=== PATIENT | female | born 1970 | race Caucasian/White ===

== ENCOUNTER → 2017-04-06 | Outpatient (CLI) | payer OTHER ==
[~2017-04-06] MED LIST: BUPRTAB51 PO; CIPR-255 PO
[2017-04-06 09:32] LABS: HEMATOCRIT 40.8 % (37-47); MEAN CELL VOLUME 89.7 fL (80-100); MEAN CORPUSCULAR HGB CONC 32.4 g/dl (32-36); PLATELET COUNT 252 K/uL (130-400); RED BLOOD COUNT 4.55 M/uL (4.2-5.4); WHITE BLOOD COUNT 5.07 K/uL (4.8-10.8)
[2017-04-06 10:03] LABS: ALT/SGPT 34 U/L (12-78); AST/SGOT 16 U/L (15-37); BLOOD UREA NITROGEN 9 mg/dl (7-18); BUN/CREATININE RATIO 10.9 (10-20); CARBON DIOXIDE 26 mmol/L (21-32); CHLORIDE 108 mmol/L (98-107); CREATININE 0.79 mg/dl (0.60-1.20); GLUCOSE 84 mg/dl (70-99); SODIUM 141 mmol/L (136-145)
[2017-04-06 10:15] LABS: ALKALINE PHOSPHATASE 104 U/L (45-117); CHOLESTEROL 185 mg/dl (0-200); CHOLESTEROL/HDL RATIO 4.3; HDL CHOLESTEROL 43 mg/dl; LDL CHOLESTEROL CALCULATED 118 mg/dl; TRIGLYCERIDES 121 mg/dl (0-150); VERY LOW DENSITY LIPOPROT CALC 24 mg/dl
== END | disposition home or self-care (01) ==
LOC: C.LAB 08:21
PROVIDERS: ATTEND Physician Assistant
DX: E78.5 Hyperlipidemia, unspecified (principal); R23.8 Other skin changes

== ENCOUNTER → 2017-07-04 | Outpatient (CLI) | payer OTHER ==
[2017-07-04 10:26] LABS: TESTOSTERONE,TOTAL 27.5 ng/dl
[2017-07-05 15:21] LABS: MICROSOMAL AB 1 IU/ML (<9)
== END ==
LOC: C.LAB 08:30
PROVIDERS: ATTEND Family Medicine
DX: R53.83 Other fatigue (principal); N95.9 Unspecified menopausal and perimenopausal disorder; E34.9 Endocrine disorder, unspecified

== ENCOUNTER → 2017-08-31 | Outpatient (CLI) | payer OTHER ==
[2017-08-31 10:28] LABS: TESTOSTERONE,TOTAL 144.6 ng/dl
== END | disposition home or self-care (01) ==
LOC: C.LAB 08:08
PROVIDERS: ATTEND Family Medicine
DX: N95.9 Unspecified menopausal and perimenopausal disorder (principal); Z79.890 Hormone replacement therapy

== ENCOUNTER → 2017-09-19 | Outpatient (CLI) | payer OTHER ==
[~2017-09-19] MED LIST changes: +CYCL10TA6 PO; +IBUP-1427 PO; +LACT1CAP6 PO; +META1TAB22 PO; +OXYC-90 PO; +SIMV10TA2 PO
--- NOTE | 2017-10-03 14:56 | MAMMOGRAPHY REPORT ---
BILATERAL DIGITAL SCREENING MAMMOGRAM TOMOSYNTHESIS WITH CAD: 09/19/2017 CLINICAL HISTORY: Routine screening. TECHNIQUE: Bilateral breast tomosynthesis in addition to standard 2D mammography was performed. Juan nt study was also evaluated with a Computer Aided Detection (CAD) system. COMPARISON: Comparison is made to exams dated: 04/25/2012 aspiration, 04/25/2012 ultrasound, 04/25/2012 mammogram, 04/19/2011 mammogram - [facility], and 12/21/2015 mammogram - [facility] René Kinsey. BREAST COMPOSITION: The tissue of both breasts is heterogeneously dense, which may obscure small mas ses. FINDINGS: There are multiple bilateral partially circumscribed masses in the breasts, most likely rep resenting cysts, particularly given a prior left breast ultrasound performed in 2011 in which several anechoic cysts were documented at that time. No suspicious spiculated or irregular mass, architectu ral distortion or cluster of microcalcifications is seen. IMPRESSION: ACR BI-RADS CATEGORY 0: INCOMPLETE EVALUATION: NEED ADDITIONAL IMAGING EVALUATION 1. No mammographic evidence of malignancy. 2. However, the patient reports she is feeling a lump in the left breast, which may have been aspira august in the past. Nevertheless, definitive characterization with targeted ultrasound of this lump is recommended. The patient will be called to schedule an appointment. Approximately 10% of breast cancers are not detected with mammography. A negative mammographic report should not delay biopsy if a clinically suggestive mass is present. Linda Jarrett M.D. ay/:10/02/2017 15:05:47 [employer] Print[employer] Back Tender: Luis A MCCAULEY(Daren)(Colleen), [facility] letter sent: Addl Imaging 0 BI-RADS Code: ACR BI-RADS Category 0: Incomplete Evaluation: Need Additional Imaging Evaluation
== END | disposition home or self-care (01) ==
LOC: C.MAMM 14:17
PROVIDERS: ATTEND Physician Assistant
DX: Z12.31 Encounter for screening mammogram for malignant neoplasm of breast (principal)

== ENCOUNTER → 2017-10-08 | Outpatient (CLI) | payer OTHER ==
[~2017-10-08] MED LIST changes: -CYCL10TA6 PO; -IBUP-1427 PO; -LACT1CAP6 PO; -META1TAB22 PO; -OXYC-90 PO; -SIMV10TA2 PO
--- NOTE | 2017-10-08 15:09 | MAMMOGRAPHY REPORT ---
ULTRASOUND OF LEFT BREAST: 10/08/2017 CLINICAL HISTORY: 47-year-old woman reports a palpable lump in the 6:00 left breast that she reports was drained approximately 5 years ago. She also reports her breasts have always contained multiple c ysts bilaterally. COMPARISON: Comparison is made to exams dated: 04/19/2011 mammogram, 04/25/2012 mammogram, 04/25/2012 u ltrasound, 04/25/2012 aspiration - [facility], 12/21/2015 mammogram - [facility] Jesús laneCarmel Kinsey, and 09/19/2017 mammogram - [facility]. FINDINGS: Targeted ultrasound was performed in the 5:00 left breast, in the area of new palpable lum p pointed out by the patient. In the 5:00 axis, 3 cm from the nipple, there is a circumscribed, lobu lated anechoic benign simple cyst, with evidence of posterior acoustic enhancement, measuring 2.5 x 1 .6 x 2.2 cm. Another smaller abutting cyst measures 4.9 x 7.6 mm. Numerous other anechoic benign si mple cysts are scattered throughout the remainder of the lateral left breast on ultrasound, most nota fady larger anechoic cyst in the 2:00 left breast, 7 cm from the nipple, measuring 2.4 and 1.3 cm. A 2.5 cm anechoic cyst in the 12:00 left breast, another anechoic cyst in the 2:00 left breast, 1 cm fr om the nipple measuring 1.9 cm and a 2.9 cm cyst in the 3:00 left breast. No suspicious solid mass i s identified on targeted ultrasound. IMPRESSION: ACR BI-RADS CATEGORY 2: BENIGN The new palpable lump in the 5:00 left breast correlates with an anechoic benign simple cyst on ultra sound, measuring 2.5 cm. Several other anechoic benign simple cysts are scattered throughout the lat eral left breast on ultrasound, compatible with benign fibrocystic change. There is no targeted sono graphic evidence of malignancy in the left breast. Recommend continued clinical monitoring and also return to annual screening mammography schedule. Any new palpable lump should trigger a diagnostic u ltrasound. These results and recommendations were discussed with the patient at the time of the exam. Linda Jarrett M.D. ay/:10/08/2017 10:33:51 Freight Shipping Agent: Dr. Linda Jarrett, [facility] letter sent: Normal 10/02 BI-RADS Code: ACR BI-RADS Category 2: Benign
== END | disposition home or self-care (01) ==
LOC: C.MAMM 08:39
PROVIDERS: ATTEND Physician Assistant
DX: N63.23 Unspecified lump in the left breast, lower outer quadrant (principal); N60.02 Solitary cyst of left breast

== ENCOUNTER 2017-12-02 10:50 | Emergency (ER) | payer OTHER ==
[~2017-12-02] VITALS: Ht 172.7 cm; Wt 86.1 kg
[2017-12-02 10:52] VITALS: TEMP 36.3; Ht 172.7 cm; Wt 86.1 kg
[2017-12-02] MEDS ORDERED: SIMV10TA2 PO (11:04)
[2017-12-02] MEDS ORDERED: IBUP-1427 PO (11:04)
[2017-12-02] MEDS ORDERED: LACT1CAP6 PO (11:04)
[2017-12-02] MEDS ORDERED: MoRPHine SULFATE 10 MG/ML CARP/VIAL IM STA (11:13)
[2017-12-02] MEDS ORDERED: KETOROLAC TROMETHAMINE 60 MG/2 ML VIAL IM STA (11:13)
[2017-12-02] MEDS ORDERED: ONDANSETRON 4MG OD TAB PO STA (11:13)
[2017-12-02] MEDS ORDERED: DIAZEPAM INJ 5 MG/ML 2 ML CARP IM STA (12:05)
[2017-12-02] MEDS ORDERED: OXYC1TAB3 PO (13:08)
[2017-12-02] MEDS ORDERED: META1TAB22 PO (13:08)
[2017-12-02] MEDS ORDERED: CYCL10TA6 PO (13:08)
[2017-12-02 13:31] VITALS: BP 126/65; PULSE 63; O2SAT 100
--- NOTE | 2017-12-02 13:32 | EMERGENCY ROOM VISIT NOTE ---
History First contact with patient: 11:00 Chief Complaint: BACK PAIN Stated Complaint: R UPPER BACK SPASM History of Present Illness The patient is a 47 year old female who presents to the Emergency Room with complaints of right middle back pain. The patient reports that she developed the discomfort rather suddenly upon awakening this morning at 8:30 AM. The patient reports that she was getting out of bed at the time. The patient reports that the pain has progressively worsened, and feels like a spasm. The patient has had similar spasms in the past. The patient reports that she was doing some lifting and different yoga positions yesterday. She did not notice any discomfort upon going to bed. She currently denies any paresthesias or numbness of the torso or lower extremities. The patient denies any recent urinary symptoms, chest pain, shortness of breath, fevers or chills. The pain is worsened with movement. She rates her discomfort an 8 out of 10. Review of Systems 10 system review was performed and was negative except for pertinent positives and negatives as indicated in history of present illness Past Medical/Surgical History Medical Problems: (1) Asthma, Unspecified (2) Hyperlipidemia, Unspecified (3) Tobacco Use Disorder Surgical Problems: (1) History of arthroscopy of left knee Family History FH: cancer Social History Smoking Status: Never Smoker Alcohol Use: none Marital Status: Housing Status: lives with family Occupation Status: employed Current/Historical Medications Scheduled Lactobacillus (Probiotic), 1 CAP PO DAILY Simvastatin (Zocor), 1 TAB PO DAILY Scheduled PRN Cyclobenzaprine Hcl (Flexeril), 10 MG PO TID PRN for spasm Ibuprofen Tab (Motrin), 600 MG PO UD PRN for Pain Metaxalone (Skelaxin), 800 MG PO QID PRN for spasm Oxycodone Ir (Roxicodone Ir), 1-2 TAB PO Q4H PRN for Pain Physical Exam Vital Signs Date Time Temp Pulse Resp B/P (MAP) Pulse Ox O2 Delivery O2 Flow Rate FiO2 12/02/17 10:52 36.3 75 18 127/78 99 Room Air Physical Exam CONSTITUTIONAL: Healthy and well nourished. Alert and oriented X 3 with positive affect. Patient appears in moderate discomfort from pain, and is moving very carefully in her room and on the bed. HEENT: Normocephalic, atraumatic. Pupils equal, round and reactive. NECK: Full active range of motion without discomfort. RESPIRATORY: Clear to auscultation bilaterally with no wheezing, crackles, rhonchi or stridor. CARDIOVASCULAR: Regular rate and rhythm with no murmurs, rubs or gallops. GASTROINTESTINAL: Bowel sounds present in all quadrants. Soft and nontender to palpation. MUSCULOSKELETAL: Examination shows tenderness to palpation of the right lower thoracic paraspinous muscle. No palpable rigidity noted. She has no additional tenderness to palpation of the ribs or right flank. INTEGUMENTARY: No rash or other significant dermatologic conditions noted. Specifically there is no right posterior thorax dermatomal rash. NEUROLOGIC: No focal neurologic deficits noted. Medical Decision & Procedures Medications Administered Medications (Trade) Dose Ordered Sig/Sarah Route Start Time Stop Time Status Last Admin Dose Admin Ketorolac Tromethamine (Toradol Inj) 60 mg NOW STAT IM 12/02/17 11:13 12/02/17 11:14 DC 12/02/17 11:21 60 MG Morphine Sulfate (MoRPHine SULFATE INJ) 8 mg NOW STAT IM 12/02/17 11:13 12/02/17 11:14 DC 12/02/17 11:21 8 MG Ondansetron HCl (Zofran Odt) 4 mg NOW STAT PO 12/02/17 11:13 12/02/17 11:14 DC 12/02/17 11:21 4 MG Diazepam (Valium Inj) 5 mg ONE STAT IM 12/02/17 12:05 12/02/17 12:07 DC 12/02/17 12:20 5 MG ED Course Patient history and physical exam were performed. Nurse's notes were reviewed. Vital signs were reviewed and normal. I spent approximately 10 minutes on education regarding back injuries. I did suggest administering IM medications for symptomatic relief. The patient was in agreement. The patient was administered IM morphine and Toradol, along with Zofran ODT. Upon reevaluation approximate 30 minutes later, the patient rated her discomfort a 6 or 7 out of 10. At this point, she was administered Valium 5 mg IM. Recheck again in approximately 30 minutes showed reduction of her pain to a 3 out of 10. She was able to ambulate without any significant discomfort. 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 The patient reports that she has taken Flexeril in the past, but has had to cut it in half because it makes her too drowsy. The patient was provided a prescription for both Skelaxin and Flexeril. I did explain the Skelaxin has a less drowsy side effect. She was also provided a prescription for OxyIR 5 mg, dispense #10 with no refills as needed for breakthrough pain. She was encouraged alternate ibuprofen and Tylenol as well for baseline pain relief. The patient reports that she usually does not like to take medications. She was encouraged to avoid heavy labor, lifting and pushing. The patient reports that she does stand at a desk throughout the day for work. The patient was encouraged to follow-up with her PCP if symptoms are not improving within the next several days. She is welcome to return to the emergency department for uncontrollable pain or other concerning symptoms. The patient was happy with plan of care, and voiced understanding of all discharge instructions. Medical Decision Patient presents with complaint of right thoracic pain. The patient reports that this feels consistent with a prior spasm. I did offer to perform a urine dip to look for hematuria, however the patient reports that she is currently menstruating. She does not feel that her symptoms are consistent with renal colic or cardiopulmonary etiology. [facility] Drug Monitoring Program Search Results: patient reviewed within database, no issues identified Medication Reconcilliation Current Medication List: was personally reviewed by me Blood Pressure Screening Patient's blood pressure: Normal blood pressure Impression Primary Impression: Spasm of thoracic back muscle Departure Information Dispostion Home / Self-Care Prescriptions Oxycodone Ir (Roxicodone Ir) 5 Mg Tab 1-2 TAB PO Q4H Y for Pain, #15 TAB For Initial Treatment Prov: Hemal Hernandez PA 12/02/17 Cyclobenzaprine Hcl (FLEXERIL) 10 Mg Tab 10 MG PO TID Y for spasm, #10 TAB Prov: Hemal Hernandez PA 12/02/17 Metaxalone (Skelaxin) 800 Mg Tab 800 MG PO QID Y for spasm, #28 TAB Prov: Hemal Hernandez PA 12/02/17 Forms HOME CARE DOCUMENTATION FORM, IMPORTANT VISIT INFORMATION Patient Instructions My [facility] Additional Instructions Intermittently apply an ice pack over the next 24 hours, then heat as needed. Ibuprofen 800 mg and/or Tylenol 1000 mg every 8 hours. You may also alternate these medications for more effective pain relief: Ibuprofen --4 HRS--> Tylenol --4 HRS--> ibuprofen --4 HRS--> Tylenol .... Take Skelaxin (muscle relaxer) as prescribed. You have also been provided a prescription for Flexeril if you have better muscle spasm relief. OxyIR if needed for worse pain. Do not drink alcohol or drive while taking Flexeril or OxyIR. Follow-up with your family doctor if symptoms are not improving within the next 2-3 days. Return to the emergency department for uncontrollable pain or other concerning symptoms. FOR WORK: Please excuse from work on 12/03/17.
== END 2017-12-02 13:32 | disposition home or self-care (01) ==
LOC: C.EDB 10:52 → C.EDD 13:32
DX: M62.830 Muscle spasm of back (principal); J45.909 Unspecified asthma, uncomplicated; E78.5 Hyperlipidemia, unspecified; Z80.9 Family history of malignant neoplasm, unspecified; Z79.899 Other long term (current) drug therapy